=== PATIENT | female | born 1995 | race Caucasian/White ===

== ENCOUNTER 2019-12-04 14:04 | Inpatient (IN) ==
[2019-12-04] MEDS ORDERED: OXYTOCIN 30 UNITS/500 ML BAG IV PRN ×2 (14:42→23:33)
[2019-12-04 15:02] LABS: Hematocrit (blood only) 40.2 % (37-47); Hemoglobin 13.4 g/dL (12.0-16.0); Mean Corpuscular Hemoglobin 31.2 pg (25-34); Mean Corpuscular Volume 93.7 fL (80-100); Mean Platelet Volume 11.4 fL (7.4-10.4); Platelet Count 195 K/uL (130-400); RDW Standard Deviation 47.9 fL (36.4-46.3); Red Blood Count 4.29 M/uL (4.2-5.4); White Blood Count 10.81 K/uL (4.8-10.8)
[2019-12-04 15:20] LABS: Mean Corpuscular Hgb Conc 33.3 g/dL (32-36)
--- NOTE | 2019-12-04 15:26 | History & Physical Report ---
Date of Service December 04, 2019 Assessment & Plan (1) Supervision of normal first : 24yo at 39.0 weeks GA. SROM and early labor. 1. Fetus: Cat 1 2. Labor: Early with increasing contractions. Grossly positive for ROM' 3. Vitals: WNL 4. GBS: Negative 5. Pain: PRN History of Present Illness Primary Care Provider: NO PCP 24yo at 39 weeks GA. Presents with SROM. Patient noted to be grossly ruptured. Reporting increasing frequency and intensity of contraction. Denied VB. Good FM. has been uncomplicated. Allergies Allergy/AdvReac Type Severity Reaction Status Date / Time nitrofurantoin Allergy Verified 11/28/19 16:13 [From Macrobid] Penicillins Allergy Verified 11/28/19 16:13 Home Medications Home Medications Medication Instructions Recorded Confirmed Type vit-iron fum-folic ac 1 tab PO Q OTHER DAY 12/04/19 12/04/19 History [ Vitamin] Patient History Surgical History (Updated 06/25/19 @ 12:24 by Demetra Hurley) S/P wisdom tooth extraction Family History (Updated 06/25/19 @ 12:27 by Demetra Hurley) Brother Allergic rhinitis Mother Anxiety Cervical cancer Sister Anxiety Grandmother (Maternal) Hypertension Liver disease Aunt Breast cancer Other Asthma Family history of fraternal twins Social History (Updated 06/25/19 @ 12:27 by Demetra Hurley) Preferred Language: Sudanese Communication Ability: Effective Beliefs That Will Affect Care: None marital status: Current Living Situation: Spouse Other Information That Helps Us Care for You: No Feels Safe at Home: Yes Smoking Status: Never smoker Do You Dip or Chew Tobacco: No ; Second Hand Expo sure: Yes ; Hx Alcohol Use: No Hx Substance Use: No Physical Exam Constitutional: WD/WN, vitals as above Gastrointestinal (Abdomen): Inspection/Auscultation: + abdomen abnormal to inspection Percussion/Palpation: abdomen soft; abdomen nontender, no guarding and abdomen not rigid Genitourinary: Manual OB Exam: + cervical dilation 3 cm, + cervical effacement 80% and + station -1 OB Exam Monitor Tracing: + external FHT monitor used, + external uterine monitor used, + category I and + normal FHT variability; no early decelerations present, no late decelerations present and no variable decelerations Results & Data Vital Signs (Past 12 Hours) Vital Signs Temp Pulse Resp BP 12/04/19 14:56 36.7 C 94 H 18 128/76 12/04/19 14:20 93 H 137/71 12/04/19 14:15 36.7 C 20
[2019-12-04] MEDS: LACTATED RINGER'S 1,000 ML IV PRN ×2 (17:14→21:39)
[2019-12-04] MEDS ORDERED: fentaNYL 2MCG/ML ROPIV 1.25MG/ML 100 ML BAG EPI ONE (17:17)
[2019-12-04] MEDS ORDERED: fentaNYL citrate 100 MCG/2 ML VIAL ONE (17:17)
[2019-12-04] MEDS ORDERED: BUPIVACAINE 0.25% 30 ML VIAL ONE (17:17)
[2019-12-04] MEDS ORDERED: ePHEDrine sulfate 50 MG/ML AMP ONE (17:17)
--- NOTE | 2019-12-04 17:32 | Anesthesiology Consultation ---
Date of Service December 04, 2019 Assessment & Plan (1) Encounter for pre-operative examination: Chart Review Chart Review: Acceptable Risk for Surgery and Acceptable Risk for Labor Epidural History Height/Weight Height: 5 ft 2 in Weight: 73.936 kg Allergies Allergy/AdvReac Type Severity Reaction Status Date / Time nitrofurantoin Allergy Verified 11/28/19 16:13 [From Macrobid] Penicillins Allergy Verified 11/28/19 16:13 Medications Home Medications Medication Instructions Recorded Confirmed Last Taken vit-iron fum-folic ac 1 tab PO Q OTHER DAY 12/04/19 12/04/19 12/03/19 22:00 [ Vitamin] Active Medications Generic Name Dose Route Start Last Admin Trade Name Freq PRN Reason Stop Dose Admin Lactated Ringer's 1,000 mls @ 125 mls/hr 12/04/19 14:42 12/04/19 17:14 Lr IV 12/06/19 14:41 999 mls/hr .Q8H PRN Administration L&D Protocol Protocol Past Medical History Medical History (Updated 12/04/19 @ 17:32 by Kenny Glass MD) (Acute) Past Family History Family History Brother Allergic rhinitis Mother Anxiety Cervical cancer Sister Anxiety Grandmother (Maternal) Hypertension Liver disease Aunt Breast cancer Other Asthma Family history of fraternal twins Past Surgical History Surgical History S/P wisdom tooth extraction Social History Smoking Status: Never smoker Do You Dip or Chew Tobacco: No Hx Alcohol Use: No Hx Substance Use: No Physical Exam Vital Signs Last Vital Signs Temp 36.8 C 12/04/19 17:05 Pulse 90 12/04/19 17:25 Resp 18 12/04/19 17:05 BP 128/76 12/04/19 14:56 Pulse Ox 95 12/04/19 17:25 Testing Laboratory Results 12/04/19 14:52
[2019-12-04] MEDS ORDERED: NALOXONE HCL 1 MG in SODIUM CHLORIDE 0.9% 1000ML 1,000 ML IV PRN (17:57)
[2019-12-04] MEDS ORDERED: ONDANSETRON INJ 2 MG/ML 2 ML VIAL IV PRN (17:57)
[2019-12-04] MEDS ORDERED: fentaNYL 2MCG/ML ROPIV 1.25MG/ML 100 ML BAG EPI PRN (17:57)
[2019-12-04] MEDS ORDERED: NALOXONE HCL 0.4 MG/1 ML VIAL/CARP IV PRN (17:57)
[2019-12-04] MEDS ORDERED: ePHEDrine sulfate 50 MG/ML AMP IV PRN (17:57)
--- NOTE | 2019-12-04 19:26 | Labor Progress Brief Note ---
Date of Service December 04, 2019 Subjective Reason For Note: Routine Evaluation Assessment & Plan (1) Supervision of normal first : 24yo at 39.0 weeks GA. SROM and early labor. 1. Fetus: Cat 2 with variable decels but good variability and accels. 2. Labor: Progressing well. Grossly positive for ROM 3. Vitals: WNL 4. GBS: Negative 5. Pain: Epidural in place Physical Exam Genitourinary: Manual OB Exam: + cervical dilation (9.5), + cervical effacement 100%, + station + 1 and + amniotic fluid clear OB Exam Monitor Tracing: + external FHT monitor used, + external uterine monitor used, + category II, + normal FHT variability and + variable decelerations; no early decelerations present and no late decelerations present Results & Data Vital Signs (Past 12 Hours) Vital Signs Temp Pulse Resp BP Pulse Ox 12/04/19 19:06 82 115/62 80 L 12/04/19 19:01 80 89 L 12/04/19 19:00 36.8 C 18 12/04/19 18:54 86 86 L 12/04/19 18:52 80 112/59 L 12/04/19 18:51 77 95 12/04/19 18:47 75 89 L 12/04/19 18:41 86 87 L 12/04/19 18:36 88 111/59 L 95 12/04/19 18:35 83 89 L 12/04/19 18:30 83 16 86 L 12/04/19 18:24 80 88 L 12/04/19 18:22 80 110/59 L 12/04/19 18:21 68 91 12/04/19 18:17 92 H 88 L 12/04/19 18:06 98 H 84 L 12/04/19 18:05 93 H 114/64 99 12/04/19 18:03 101 H 113/62 12/04/19 18:01 100 H 114/61 12/04/19 18:00 103 H 99 12/04/19 17:59 88 119/67 12/04/19 17:57 98 H 119/69 12/04/19 17:55 93 H 121/68 97 12/04/19 17:53 70 123/77 12/04/19 17:50 81 95 12/04/19 17:45 110 H 86 L 12/04/19 17:40 91 H 98 12/04/19 17:38 92 H 93 12/04/19 17:35 81 97 12/04/19 17:32 82 92 12/04/19 17:30 73 99 12/04/19 17:25 90 95 12/04/19 17:05 36.8 C 18 12/04/19 14:56 36.7 C 94 H 18 128/76 12/04/19 14:20 93 H 137/71 12/04/19 14:15 36.7 C 20
[2019-12-04] MEDS ORDERED: CALCIUM CARBONATE 500 MG CHEWABLE TAB PO PRN (20:43)
[2019-12-04] MEDS ORDERED: DIPHTHERIA/TETANUS/PERTUSSIS 0.5 ML SYR/VIAL IM ONE (23:33)
[2019-12-04] MEDS ORDERED: HYDROCORTISONE ACETATE 25 MG SUPP PR PRN (23:33)
[2019-12-04] MEDS ORDERED: BENZOCAINE 20% AER SPR 82.5 GM CAN EXT PRN (23:33)
[2019-12-04] MEDS ORDERED: ACETAMINOPHEN 325 MG TAB PO PRN (23:33)
[2019-12-04] MEDS ORDERED: SUPERCREAM 0.870% 15 GM JAR EXT PRN (23:33)
[2019-12-04] MEDS ORDERED: bisacodyL 10 MG SUPP PR PRN (23:33)
--- NOTE | 2019-12-05 01:16 | Delivery Summary ---
DATE OF OPERATION: 12/04/2019 PROCEDURE: Normal spontaneous vaginal delivery, second degree perineal laceration repair. SURGEON: Ryan Heller MD PREOPERATIVE DIAGNOSES: 1. Single intrauterine at 39 weeks 0 days gestational age. 2. Spontaneous rupture of membranes. 3. Spontaneous labor. POSTOPERATIVE DIAGNOSES 1. Single intrauterine at 39 weeks 0 days gestational age. 2. Spontaneous rupture of membranes. 3. Spontaneous labor. 4. Status post delivery. ESTIMATED BLOOD LOSS: 300 mL DRAINS: None. FLUIDS: Continuous lactated ringer. URINE OUTPUT: Not measured. COMPLICATIONS: None. FINDINGS: Viable female with weight pending, Apgars of 8 and 9 at 1 and 5 minutes respectively. INDICATIONS: Kim is a 24-year-old G1, P0, admitted at 39 weeks 0 days gestational age with spontaneous rupture of membranes, early labor. At first evaluation, the patient was found to be 3 cm dilated, 80% effaced, -1 station. The patient progressed in labor without augmentation and was noted to be grossly ruptured at time of admission. The patient did receive an epidural for anesthesia and progressed to complete , complete +3 station at the time she did start to feel pressure from pushing. DESCRIPTION OF PROCEDURE: The patient progressed to 10 cm dilated, 100% effaced, +3 station, pushed over intact perineum with epidural anesthesia and delivered a viable female with weight and Apgars as noted above. Head of delivered in CHAU position, rest into right transverse. No nuchal cord was noted. Body and shoulders quickly followed. was noted to be vigorous soon after delivery, was delivered to the maternal abdomen. A 1-minute delayed cord clamping was initiated for which the cord was double clamped and cut. The remained on maternal abdomen as it was still noted to be vigorous. Cord blood was then obtained. Attention was then turned to deliver the placenta, which was delivered intact, 3-vessel cord, gentle cord traction. On inspection of the perineum, vagina, and cervix, there is noted to be second degree perineal laceration which was repaired with a traditional crown stitch of 3-0 Vicryl. Needle, sponge and instrument counts were noted to be complete at the end of the case. Both mother and stable in the immediate post-delivery period. I attest to the content of the Intraoperative Record and any orders documented therein. Any exception s are noted below.
[2019-12-05] MEDS: IBUPROFEN 600 MG TAB PO PRN ×5 (02:17→21:09)
[2019-12-05 06:29] LABS: Hematocrit (blood only) 33.8 % (37-47); Hemoglobin 11.5 g/dL (12.0-16.0); Mean Corpuscular Hemoglobin 31.9 pg (25-34); Mean Corpuscular Volume 93.9 fL (80-100); Mean Platelet Volume 11.3 fL (7.4-10.4); Platelet Count 179 K/uL (130-400); RDW Coefficient of Variation 14.2 % (11.5-14.5); RDW Standard Deviation 48.7 fL (36.4-46.3); White Blood Count 18.94 K/uL (4.8-10.8)
--- NOTE | 2019-12-05 07:25 | Obstetrical Progress Note ---
Date of Service <Heidi Castellon DO - Last Filed: 12/05/19 07:45> December 05, 2019 Assessment & Plan <Heidi Castellon DO - Last Filed: 12/05/19 07:45> (1) Encounter for care and examination after delivery: 24 yo F PPD #1 following at 38w0d with second-degree perineal laceration, doing well and without complaints this morning. - PPD #1 - Feels well, ambulating well, voiding well. - Continue ice and medications for pain control. - Will continue routine care. - Following d/c will have f/u in 6 weeks. Subjective <Heidi Castellon DO - Last Filed: 12/05/19 07:45> Kim is a 24 yo female ; PPD#1 following vaginal delivery at 39.0 weeks; doing well this AM; no abdominal cramping/pain; voiding well; tolerating meals overnight, able to ambulate some within the room. Some intermittent spoting this AM and some vaginal pressure after laceration repair. Review of Systems Constitutional: denies fever, chills, sweats, headache Respiratory: denies SOB, difficulty breathing Cardiac: denies CP, chest palpitations, chest pressure Breast: denies breast pain : denies dysuria Physical Exam <DO Kyle Nagy Last Filed: 12/05/19 07:45> General: patient is alert and oriented, in NAD Cardiac: +S1/S2, no murmurs rubs or gallops Respiratory: lungs CTA b/l, anteriorly and posteriorly, no wheezes rales or rhonchi, no increased work of breathing, symmetric chest rise, no respiratory distress Abdomen: soft, NT, +bowel sounds Uterus: uterine fundus firm, palpable below the level of the umbilicus Lower Extremities: no LE edema or swelling, no deep calf pain, Tyrone's sign negative b/l Results & Data <DO Kyle Nagy Last Filed: 12/05/19 07:45> Vital Signs (Past 12 Hours) Vital Signs Temp Pulse Pulse Resp BP BP Pulse Ox 12/05/19 04:55 36.7 C 65 16 114/79 12/05/19 02:10 36.8 C 76 16 125/78 12/05/19 01:22 36.9 C 83 18 128/73 12/05/19 01:07 81 16 125/73 12/05/19 00:52 71 16 118/73 12/05/19 00:37 82 18 119/76 12/05/19 00:22 92 H 16 120/73 12/05/19 00:07 85 18 115/69 12/04/19 23:52 79 16 112/67 12/04/19 23:37 99 H 16 114/69 12/04/19 23:21 37.4 C 106 H 18 115/71 97 12/04/19 23:06 112 H 128/77 95 12/04/19 22:55 154 H 88 L 12/04/19 22:52 118 H 137/80 12/04/19 22:51 114 H 97 12/04/19 22:37 104 H 123/67 12/04/19 22:36 100 H 96 12/04/19 22:21 97 H 97 12/04/19 22:06 120 H 99 12/04/19 22:00 18 12/04/19 21:51 83 120/65 98 12/04/19 21:37 81 125/68 12/04/19 21:36 83 99 12/04/19 21:21 90 124/74 99 12/04/19 21:06 36.9 C 100 H 18 122/68 97 12/04/19 20:51 91 H 115/66 98 12/04/19 20:37 110 H 18 136/80 12/04/19 20:36 98 H 99 12/04/19 20:21 90 121/59 L 99 12/04/19 20:06 95 H 18 120/66 99 12/04/19 19:51 87 112/60 97 12/04/19 19:36 87 18 110/59 L 99 <Ryan Heller MD - Last Filed: 12/05/19 07:47> Co-Signing Physician Notes Post day 1. Doing well will continue routine care Resident Activity Tracking <Heidi Castellon DO - Last Filed: 12/05/19 07:45> Resident Involvement: Resident Care Provided Care Provided: OB Delivery
--- NOTE | 2019-12-05 07:58 | Anesthesia Procedure Note ---
Date of Service December 05, 2019 Anesthesia Post Epidural Note Vital Signs Vital Signs: Temp Pulse Resp BP Pulse Ox 36.7 C 65 16 114/79 97 12/05/19 04:55 12/05/19 04:55 12/05/19 04:55 12/05/19 04:55 12/04/19 23:21 Notes Mental Status: alert / awake / arousable Nausea / Vomiting: adequately controlled Pain: adequately controlled Airway Patency, RR, SpO2: stable & adequate BP & HR: stable & adequate Hydration State: stable & adequate Neuraxial Anesthesia: was administered and sensory block is resolving Anesthetic Complications: no major complications apparent and Pt Satisfied with anesthetic care Epidural: Removed without complications and With tip intact
[2019-12-05] MEDS ORDERED: PRENATAL VITAMIN 1 TAB PO SCH ×2 (08:00→21:00)
[2019-12-05] MEDS: DOCUSATE SODIUM 100 MG CAP PO SCH ×2 (08:24→21:09)
[2019-12-05] MEDS ORDERED: Nursing to Pharmacy Communication ONE (09:36)
[2019-12-05] MEDS ORDERED: bisacodyL 5 MG TABEC PO SCH (20:00)
[2019-12-06] MEDS: IBUPROFEN 600 MG TAB PO PRN ×2 (03:30→13:11)
--- NOTE | 2019-12-06 05:58 | Obstetrical Progress Note ---
Date of Service <Heidi Castellon - Last Filed: 12/06/19 06:50> December 06, 2019 Assessment & Plan <Heidi Castellon DO - Last Filed: 12/06/19 06:50> (1) Encounter for care and examination after delivery: 24 yo F PPD #2 following at 38w0d with second-degree perineal laceration, doing well and without complaints this morning. - PPD #2 - Feels well, ambulating well, voiding well. No barriers to Baby Torrance going home today. - For discharge today; encouraged OB follow up in [address] Heller. - Went over discharge instructions and answered all of patient's questions. Subjective <Heidi Castellon - Last Filed: 12/06/19 06:50> Kim is a 24 yo female ; PPD#2 following vaginal delivery at 39.0 weeks; doing well this AM; no abdominal cramping/pain; voiding well; tolerating meals overnight, able to ambulate some within the room. Some intermittent spotting this AM and some vaginal pressure after laceration repair. No headaches or di zziness . Had a BM which relieved much of her pressure sensation. Review of Systems Constitutional: denies fever, chills, sweats, headache Respiratory: denies SOB, difficulty breathing Cardiac: denies CP, chest palpitations, chest pressure Breast: denies breast pain : denies dysuria Physical Exam <Heidi Castellon - Last Filed: 12/06/19 06:50> General: patient is alert and oriented, in NAD Cardiac: +S1/S2, no murmurs rubs or gallops Respiratory: lungs CTA b/l, anteriorly and posteriorly, no wheezes rales or rhonchi, no increased work of breathing, symmetric chest rise, no respiratory distress Abdomen: soft, NT, +bowel sounds Uterus: uterine fundus firm, palpable 1-2cm below the level of the umbilicus Lower Extremities: no LE edema or swelling, no deep calf pain, Tyrone's sign negative b/l Results & Data <Heidi Hemphillweston - Last Filed: 12/06/19 06:50> Vital Signs (Past 12 Hours) Vital Signs Temp Pulse Resp BP 12/05/19 23:45 36.8 C 75 20 121/83 12/05/19 19:30 36.8 C 91 H 18 146/87 H Medications Administered Current Medications Acetaminophen (Tylenol) 650 mg PO Q6H PRN PRN Reason: Pain/SMITH/Fever Stop: 01/03/20 23:32 Last Admin: 12/05/19 14:51 Dose: 650 mg Documented by: Benzocaine (Dermoplast Pain Relieving Wilhoit) 1 appln EXT PRN PRN PRN Reason: Perineal Discomfort Stop: 01/03/20 23:32 Bisacodyl (Dulcolax) 10 mg RI DAILY PRN PRN Reason: No BM on 2nd post- day Stop: 01/03/20 23:32 Calcium Carbonate (Tums) 1,500 mg PO BID PRN PRN Reason: Indigestion Stop: 01/03/20 20:42 Last Admin: 12/04/19 21:29 Dose: 1,000 mg Documented by: Cocaine HCl (Supercream 0.870%) 1 gm EXT BID PRN PRN Reason: Hemorrhoidal Inflammation Stop: 12/18/19 23:32 Docusate Sodium (Colace) 100 mg PO DAILY@08,21 [facility] Stop: 01/04/20 07:59 Last Admin: 12/05/19 21:09 Dose: 100 mg Documented by: Hydrocortisone (Anusol Hc) 25 mg RI BID PRN PRN Reason: Hemorrhoidal Inflammation Stop: 01/03/20 23:32 Lactated Ringer's (Lr) 1,000 mls @ 125 mls/hr IV .Q8H PRN; Protocol PRN Reason: L&D Protocol Stop: 12/06/19 14:41 Last Infusion: 12/04/19 23:05 Dose: Infused Documented by: Oxytocin (Pitocin) 30 units in 500 mls @ 333.333 mls/hr IV .Q1H30M PRN; Protocol PRN Reason: Bleeding Control Stop: 01/03/20 23:32 Ibuprofen (Motrin) 600 mg PO Q4H PRN PRN Reason: Pain/SMITH/Cramping/Fever Stop: 01/03/20 23:32 Last Admin: 12/06/19 03:30 Dose: 600 mg Documented by: Prenat Multivit/Salvage Engineer/Iron/Folic Ac ( Vitamin) 1 tab PO HS [facility] Stop: 01/04/20 20:59 Last Admin: 12/05/19 21:09 Dose: 1 tab Documented by: <Judy Orta MD - Last Filed: 12/06/19 06:22> Co-Signing Physician Notes Ready for discharge, doing well, instructions reviewed. Resident Activity Tracking <Heidi Castellon DO - Last Filed: 12/06/19 06:50> Resident Involvement: Resident Care Provided Care Provided: OB Delivery <Judy Orta MD - Last Filed: 12/06/19 06:22> Resident Involvement: Resident Care Provided Care Provided: OB Delivery
[2019-12-06 06:51] LABS: Hematocrit (blood only) 33.3 % (37-47); Hemoglobin 11.3 g/dL (12.0-16.0)
[2019-12-06] MEDS: DOCUSATE SODIUM 100 MG CAP PO SCH (08:12)
== END 2019-12-06 13:24 | disposition home or self-care (01) | DRG 807 ==
LOC: OPB 14:04 → 4S1 14:06 → 4S2 12-05 01:35